=== PATIENT | female | born 1975 | race Caucasian/White ===

== ENCOUNTER 2022-06-14 13:34 | Outpatient (CLI) | payer BC, SELFPAY ==
[2022-06-14 22:30] LABS: Cholesterol* 215 mg/dL (90-199)
[2022-06-14 22:31] LABS: HDL Cholesterol* 84 mg/dL (>=50); LDL Cholesterol Calculated 110 mg/dL (<100); Triglycerides* 105 mg/dL (40-149)
== END 2022-06-14 13:35 | disposition home or self-care (01) ==
LOC: FRMREF 13:36
PROVIDERS: PCP Obstetrics & Gynecology; Visit Provider Registered Nurse
DX: Z01.419 Encounter for gynecological examination (general) (routine) without abnormal findings (principal); Z13.6 Encounter for screening for cardiovascular disorders
CPT/HCPCS: 80061

== ENCOUNTER 2022-07-10 12:49 | Outpatient (CLI) | payer BC, SELFPAY ==
--- NOTE | 2022-07-10 13:00 | CRLHL7_ITS ---
For Patients: As a result of the Century Cures Act, medical imaging exams and procedure reports are released immediately into your electronic medical record. You may view this report before your referring provider. If you have questions, please contact your health care provider. Indication: right lateral neck palpable lump Technique: Grayscale and color Doppler ultrasound examination of the right side of the neck performed. Comparison: None Findings: There is a subcutaneous hypoechoic solid nodule just beneath the skin within the right lateral neck corresponding to the area of palpable concern. No abnormal vascularity. This measures 1.1 x 0.4 x 0.7 cm. Comparison images of the left neck demonstrate incidental calcification associated with the sternocleidomastoid. Impression: Subcutaneous solid nodule just beneath the skin within the right lateral neck measuring 1.1 x 0.4 x 0.7 cm. Dictated by Jimy Arita MD @ 07/11/2022 3:14:16 PM (Electronically Signed)
== END 2022-07-10 12:50 | disposition home or self-care (01) ==
LOC: US 12:51
PROVIDERS: Visit Provider Registered Nurse
DX: R22.1 Localized swelling, mass and lump, neck (principal)
CPT/HCPCS: 76536

== ENCOUNTER 2022-07-19 14:30 | Outpatient (CLI) | payer BC, SELFPAY ==
--- NOTE | 2022-07-19 14:40 | CRLHL7_ITS ---
For Patients: As a result of the Century Cures Act, medical imaging exams and procedure reports are released immediately into your electronic medical record. You may view this report before your referring provider. If you have questions, please contact your health care provider. BILATERAL SCREENING MAMMOGRAM WITH COMPUTER-AIDED DETECTION AND TOMOSYNTHESIS TECHNIQUE: CC, MLO and Implant displaced views were obtained. These mammographic images have been obtained using full-field digital technique. These mammographic images were interpreted with the benefit of computer-aided detection. Breast Tomosynthesis was used in this interpretation. COMPARISON FILM: 06/11/18, 11/27/13. FINDINGS: The breasts are heterogeneously dense, which may obscure small masses IMPRESSION: There is no radiographic evidence for malignancy. ASSESSMENT: BI-RADS Category 2: Benign RECOMMENDATION: Routine screening mammogram in 1 year. A lay language report of this examination will be provided to the patient. Jimy Arita M.D. Diagnostic Radiologist [email or web address] DONG/Dictated by: Jimy Arita MD @ 07/20/2022 11:04:00 AM (Electronically Signed)
== END 2022-07-19 14:31 | disposition home or self-care (01) ==
LOC: MAMMO 14:31
PROVIDERS: Visit Provider Obstetrics & Gynecology
DX: Z12.31 Encounter for screening mammogram for malignant neoplasm of breast (principal); R92.2 Inconclusive mammogram
CPT/HCPCS: 77063; 77067